=== PATIENT | male | born 1990 | race Caucasian/White ===

== ENCOUNTER → 2024-11-02 | Outpatient (CLI) | payer BC ==
[~2024-11-02] MED LIST: HYDR25SUP PR; Ultram50 MG PO
[2024-11-05 14:45] LABS: MYCOPLASMA GENITALIUM BY PCR Not Detected; MYCOPLASMA HOMINIS BY PCR Not Detected; UREAPLASMA MYCOPLASMA SOURCE Urine; UREAPLASMA PARVUM BY PCR Not Detected; UREAPLASMA UREALYTICUM BY PCR Not Detected
== END ==
LOC: LAB SHORT 11:47 → LAB 11:47
DX: Z00.00 Encounter for general adult medical examination without abnormal findings (principal); N34.1 Nonspecific urethritis
CPT/HCPCS: 87563; 87798